=== PATIENT | female | born 1955 | race Caucasian/White ===

== ENCOUNTER 2018-02-25 13:53 | Outpatient (CLI) | payer OTHER ==
--- NOTE | 2018-02-25 15:16 | MMO ---
BILATERAL SCREENING MAMMOGRAM: COMPARISON: 01/22/14, 02/05/15, 02/12/16, 02/18/17. HISTORY: A 62-year-old female. Routine screening mammography. TECHNIQUE: CC and MLO views of both breasts are submitted for interpretation. This patient's mammogram is revie wed with the assistance of computer-aided detection. FINDINGS: Breasts are composed of scattered fibroglandular tissue. Bilaterally, no suspicious dominant mass, a rchitectural distortion, or suspicious calcification. Bilateral benign-appearing calcifications. IMPRESSION: BI-RADS category 2, benign findings. RECOMMENDATION: Annual mammogram. BIRADS 2: Benign Finding(s) Routine annual screening mammography (for women over age 40) POS: [facility]
== END 2018-02-25 13:54 | disposition home or self-care (01) ==
LOC: SCSMAMMO 13:53
PROVIDERS: ATTEND Family Medicine
DX: Z12.31 Encounter for screening mammogram for malignant neoplasm of breast (principal)
CPT/HCPCS: 77067

== ENCOUNTER 2018-07-01 12:45 | Outpatient (CLI) | payer OTHER ==
--- NOTE | 2018-07-01 15:49 | CT ---
CT OF LEFT WRIST PERFORMED WITHOUT CONTRAST ENHANCEMENT: History: Fall on wrist. FINDINGS: There is a severe subluxation of the fifth metatarsal. The base of the metatarsal is ulnarly and vola rly displaced, minimally engaging the hamate. There is a small avulsive fracture off the radial side of the base of the fifth metacarpal associated with this. There also appears to be a small avulsive i njury from the dorsal side of the hamate at the level of the joint space also incidentally noted. In addition, there is abnormal position of the fusiform. There is a widened distance between the pisi form and triquetrum suggesting underlying injury. There appears to be a tiny avulsive injury of the v olar surface of the triquetrum associated with this. IMPRESSION: 1. Severe subluxation/near dislocation of the base of the fifth metacarpal. It is ulnarly displaced a nd volarly displaced in relation to its normal articulation with the hamate. Tiny avulsive injury fro m the radial side of the base of the fifth metacarpal is seen and there is also a small avulsive inju ry off the distal dorsal surface of the hamate. 2. There is also an abnormal position of the pisiform with widened distance between the psiiform and triquetrum. There is also a very subtle avulsive fracture involving the volar side of the triquetrum. POS: [facility]
== END 2018-07-01 12:46 | disposition home or self-care (01) ==
LOC: SCSCT 12:45
PROVIDERS: ATTEND Orthopaedic Surgery Hand Surgery
DX: S69.92XA Unspecified injury of left wrist, hand and finger(s), initial encounter (principal); S93.332A Other subluxation of left foot, initial encounter; S63.005A Unspecified dislocation of left wrist and hand, initial encounter; S62.112A Displaced fracture of triquetrum [cuneiform] bone, left wrist, initial encounter for closed fracture

== ENCOUNTER 2018-07-02 13:17 | Day surgery (SDC) | payer OTHER ==
[~2018-07-02 13:17] MED LIST: Lidocaine 1% PF 5 ML VIAL ONE; Ondansetron PF 4 MG/2 ML Vial ONE; PROPOFOL 200 MG/20 ML VIAL ONE
[2018-07-02] MEDS ORDERED: CEFAZOLIN 2 GM/50 ML BAG ONE (14:14)
[2018-07-02] MEDS ORDERED: Fentanyl 250 MCG/5 ML VIAL ONE (14:51)
[2018-07-02] MEDS ORDERED: Bacitracin Zinc Ointment 30 gm TUBE ONE (15:02)
[2018-07-02] MEDS ORDERED: Bupivacaine PF 0.5% 30 ML VIAL ONE (15:02)
[2018-07-02] MEDS ORDERED: Fentanyl 100 MCG/2 ML VIAL ONE (18:14)
[2018-07-02] MEDS ORDERED: Ketorolac Tromethamine 30 MG/ML VIAL ONE (18:34)
--- NOTE | 2018-07-03 23:50 | RAD ---
LEFT WRIST INTRAOPERATIVE FLUOROSCOPY TWO VIEWS: History: Wrist fracture. FINDINGS: Intraoperative fluoroscopy was provided for internal fixation as performed by Dr. Marcelo. Spot fluo roscopic images show wires and metallic anchors overlying the bases of the 4th and 5th metacarpals an d the 4th and 5th metacarpal phalangeal joint. Fluoro time: 89-seconds POS: [facility]
--- NOTE | 2018-07-04 15:02 | OP ---
DATE OF PROCEDURE: 07/02/2018 PREOPERATIVE DIAGNOSES: 1. Left ring finger metacarpal fracture base displaced to pisotriquetral avulsion fracture with mild pisiform subluxation laterally. 2. Possible old injury. 3. Small finger left carpometacarpal dislocation with base small finger metacarpal going completely lateral and partial volarly. PROCEDURES PERFORMED: 1. Open reduction and internal fixation of left ring finger metacarpal fracture. 2. Open reduction and internal fixation of left small finger metacarpal dislocation of carpometacarpal joint using K-wire and tightrope technique, many closed treatment of pisiform avulsion fracture with mild subluxation. ESTIMATED BLOOD LOSS: 10 mL. TOURNIQUET TIME: 68 minutes. FINDINGS: 1. Again pisiform with avulsion, possible old lateral injury. 2. Complete dislocation of small finger, lateral 100% volar, proximal 25% sublux, and ring finger metacarpal base fracture that was minimally displaced. 3. molded short arm splint application. 4. C-arm supervision. DESCRIPTION OF PROCEDURE: After successful general LMA technique, the limb was prepped and draped. We identified the area of the carpometacarpal joint fourth and fifth interval, outlined the incision and gave her a block of 10 mL of 0.5% Marcaine. We will give another 10 mL when the wound is closed. We exsanguinated the limb, inflated the tourniquet to 250 mmHg pressure. We made a zigzag incision through the skin and subcutaneous tissue, found the 2 terminal branches of superficial ulnar nerve and dissected them, so that one would be radial and one would be ulnar and palmar to an area of work. We then released the connection between the fourth and fifth metacarpal extensor tendon group, and immediately made an incision through the capsule of the hamate to ring finger and found that the intermetatarsal ligament was torn and most of it was equally 50% with the fifth and 50% with the fourth. We irrigated the joint. We then noticed the fracture, held it with a clamp to the fourth metacarpal base and passed an oblique K-wire which held it very stable. The wire was then cut appropriately. It was in good position in frontal and sagittal plane. We then reduced the carpometacarpal joint by palmar to dorsal and ulnar to radial force until it completely was intact and the socket in it's normal position, recessed approximately 15 to 20 degrees of palmar to the ring finger. We then dissected completely, held it intact, over reduced slightly and pinned it from the hamate to the base of fifth metacarpal slightly more palmar than dorsal. We then passed an oblique nitinol wire protecting the ulnar nerve branches and extensor mechanism from the base of the small fingers, palmar one-third to the dorsal one-third of the ring finger, brought out between the third and fourth metacarpal interspace. We then brought the wire out the skin, passed the suture for the tightrope with one tightrope placed against the base of the small finger metacarpal not impinging on the tendon and the other now against the bone obliquely. We had the K-wire holding that well reduced, tied the cystitis possible and cut it, and buried the knot in the interspace. We released the tourniquet. We then closed the intermetatarsal ligament. We suture, subcutaneously closed with 3-0 Monocryl, skin reapproximated, dermis and epidermis together with interrupted 4-0 nylon mattress pattern. We then brought the C-arm to the field, confirmed that a small palmar to dorsal force and ulnar radial on the once we placed these the bacitracin Adaptic, 4 x 4, Kerlix dressing, we then did that type of maneuver and held the splint. C-arm confirmed excellent position. Doing the C-arm, we used a Bora view to confirm that we had excellent reduction of the fifth and fourth carpometacarpal joint and metacarpal base. The patient left the operating room without evidence of anesthetic or operative complication. Job ID: [id number]
== END 2018-07-02 19:35 | disposition home or self-care (01) ==
LOC: SDC/OP 13:17
PROVIDERS: ATTEND Orthopaedic Surgery Hand Surgery
PROC: 0RST04Z Reposition Left Carpometacarpal Joint with Internal Fixation Device, Open Approach (ICD-10-PCS; principal; 2018-07-02)
PROC: 0PSQ04Z Reposition Left Metacarpal with Internal Fixation Device, Open Approach (ICD-10-PCS; principal; 2018-07-02)
DX: S63.055A Dislocation of other carpometacarpal joint of left hand, initial encounter (principal); S62.315A Displaced fracture of base of fourth metacarpal bone, left hand, initial encounter for closed fracture
CPT/HCPCS: 76000; 93005; 93010; J1885; J2001; J2405; J2704; J3010; J3490; S0020

== ENCOUNTER 2018-12-26 07:00 | Emergency (ER) | payer OTHER ==
[2018-12-26] MEDS ORDERED: Morphine 4 MG/ML VIAL ONE ×3 (07:23→08:35)
[2018-12-26 07:38] LABS: #Basophils 0.1 thou/uL (0.0-0.2); #Eosinphils 0.1 thou/uL (0.0-0.7); #Lymphocytes 2.1 thou/uL (1.20-3.40); #Monocytes 0.5 thou/uL (0.11-0.59); #Neutrophils 4.9 thou/uL (1.40-6.50); %Basophils 1.1 % (0.0-1.0); %Eosinophils 1.8 % (0.0-10.0); %Lymphocytes 27.4 % (21.0-51.0); %Monocytes 6.7 % (0.0-10.0); Hemoglobin 15.1 g/dL (12.0-16.0); INR-International Normal Ratio 0.9; Mean Corpuscular Hemoglobin 31.8 pg (27.0-31.0); Mean Corpuscular Volume 96.5 fL (78.0-98.0); Mean Platelet Volume 6.1 fL (7.4-10.4); Platelet Count 362 thou/uL (130-400); Prothrombin Time 12.6 SEC (12.0-14.7); RBC Distribution Width 14.5 % (11.5-14.5); Red Blood Cell (RBC) Count 4.74 mill/uL (4.20-5.40); White Blood Cell (WBC) Count 7.8 thou/uL (4.8-10.8)
[2018-12-26 07:49] LABS: ALT (SGPT) 28 U/L (8-55); AST (SGOT) 31 U/L (5-34); Albumin 4.3 g/dL (3.4-4.8); Alkaline Phosphatase 106 U/L (40-150); Anion Gap 18 mmol/L (10-20); BUN (Urea Nitrogen) 16 mg/dL (9.8-20.1); Bilirubin, Total 0.4 mg/dL (0.2-1.2); CK (CPK) 136 U/L (29-168); Calc. Creatinine Clearance 0 mL/min (70-130); Calcium 9.8 mg/dL (7.8-10.44); Carbon Dioxide 22 mmol/L (23-31); Chloride 105 mmol/L (98-107); Estimated GFR-MDRD 67; Globulin 3.4 g/dL (2.4-3.5); Glucose 107 mg/dL (80-115); Potassium 3.7 mmol/L (3.5-5.1); Protein, Total 7.7 g/dL (6.0-8.3); Sodium 141 mmol/L (136-145)
[2018-12-26] MEDS ORDERED: Ondansetron PF 4 MG/2 ML Vial ONE (09:20)
[2018-12-26 11:43] LABS: PTT 28.5 SEC (22.9-36.1); Prothrombin Time 13.1 SEC (12.0-14.7)
[2018-12-26 11:46] LABS: #Lymphocytes 0.9 thou/uL (1.20-3.40); #Monocytes 0.9 thou/uL (0.11-0.59); #Neutrophils 14.4 thou/uL (1.40-6.50); %Basophils 0.2 % (0.0-1.0); %Eosinophils 0.1 % (0.0-10.0); %Lymphocytes 5.3 % (21.0-51.0); %Monocytes 5.4 % (0.0-10.0); %Neutrophils 88.9 % (42.0-75.0); Hemoglobin 15.1 g/dL (12.0-16.0); Mean Corpuscular HGB CONC 31.6 g/dL (32.0-36.0); Mean Corpuscular Hemoglobin 31.4 pg (27.0-31.0); Mean Corpuscular Volume 99.1 fL (78.0-98.0); Mean Platelet Volume 5.6 fL (7.4-10.4); Platelet Count 343 thou/uL (130-400); RBC Distribution Width 15.1 % (11.5-14.5); Red Blood Cell (RBC) Count 4.81 mill/uL (4.20-5.40); White Blood Cell (WBC) Count 16.2 thou/uL (4.8-10.8)
== END 2018-12-26 13:29 | disposition home or self-care (01) ==
LOC: SCSER 07:00
DX: T63.061A Toxic effect of venom of other North and South American snake, accidental (unintentional), initial encounter (principal); M79.89 Other specified soft tissue disorders; E78.5 Hyperlipidemia, unspecified; J45.909 Unspecified asthma, uncomplicated; Z79.899 Other long term (current) drug therapy
CPT/HCPCS: 36415; 80053; 82550; 85025; 85384; 85610; 85730; 86850; 86900; 86901; 93005; 96361; 96374; 96375; 96376; J2270; J2405